=== PATIENT | male | born 1940 | race Caucasian/White ===

== ENCOUNTER 2017-04-02 16:33 | Inpatient (IN) ==
[2017-04-02 17:21] LABS: Basophils % 0.2 % (0.0-0.8); Eosinophils # 0.2 10*3/uL (0.0-0.87); Hematocrit 36.1 VOL% (42.0-52.0); Hemoglobin 13.1 GM/DL (14.0-18.0); Immature Granulocytes % 0.7 %; Immature Granulocytes Absolute 0.06 #; Lymphocytes # 1.9 10*3/uL (1.4-4.0); Lymphocytes % 21.3 % (21.2-54.2); Mean Corpuscular HGB Conc 36.3 GM/DL (32-36); Mean Corpuscular Hemoglobin 33 PG (27-34); Mean Corpuscular Volume 89.8 FL (87-102); Mean Platelet Volume 10.5 FL (9.6-12.0); Monocytes % 11.2 % (1.7-12.7); Neutrophils # 5.6 10*3/uL (1.4-7.4); Neutrophils % 64.6 % (38.7-73.9); Platelet Count 177 T/CUMM (130-400); Red Blood Count 4.02 MC/CUMM (3.8-5.5); Red Cell Distribution Width 12.3 % (9.3-17.3); White Blood Count 8.7 T/CUMM (4-12)
[2017-04-02 17:32] LABS: INR 1.1; PT Patient Result 11.3 SECS; Partial Thromboplastin Time 26.5 SECS (0-40)
[2017-04-02 17:52] LABS: Calcium 8.2 MG/DL (8.5-10.1); Osmolality,Calculated 250.4 MOS/KG (273-304); Potassium 3.8 MMOL/L (3.5-5.1)
[2017-04-02] MEDS ORDERED: ACETAMINOPHEN 325 MG TABLET PO PRN (19:17)
[2017-04-02] MEDS ORDERED: LORazepam 1 MG TABLET PO PRN (19:17)
[2017-04-02] MEDS ORDERED: NICOTINE 21 MG/24 HR PATCH TRANSDERM PRN (19:24)
[2017-04-02] MEDS: SODIUM CHLORIDE 0.9% 1,000 ML IV SCH (20:32)
[2017-04-03 05:32] LABS: Albumin 3.2 G/DL (3.4-5.0); Bilirubin,Total 0.9 MG/DL (0.2-1.0); Calcium 8.1 MG/DL (8.5-10.1); Osmolality,Calculated 251.4 MOS/KG (273-304); Potassium 3.9 MMOL/L (3.5-5.1); Total Protein 5.4 G/DL (6.4-8.3)
[2017-04-03 05:43] LABS: Folate 11.7 NG/ML (5.4-24.0)
[2017-04-03 08:32] LABS: Thyroid Stimulating Hormone 1.04 uIU/ml (0.358-3.74)
[2017-04-03] MEDS: MULTIVITAMIN (CENTRUM) TABLET PO SCH (09:24)
[2017-04-03] MEDS: THIAMINE 100 MG TABLET PO SCH (09:24)
[2017-04-03] MEDS: FOLIC ACID 1 MG TABLET PO SCH (09:25)
[2017-04-03] MEDS: PANTOPRAZOLE 40 MG TABLET PO SCH (09:25)
[2017-04-03] MEDS: SODIUM CHLORIDE 0.9% 1,000 ML IV SCH ×2 (09:27→09:47)
[2017-04-03 11:01] LABS: Apearance,Urine CLEAR (Clear); Bilirubin,Urine Negative (Negative); Blood, Urine Small mg/dL (Negative); Glucose,Urine (UA) Negative (Negative); Hyaline Casts,Urine 2 /LPF (0-3); Ketones,Urine 5 mg/dL (Negative); Mucus,Urine Occasional /LPF (Occasional); Nitrite,Urine Negative (Negative); Protein,Urine Negative; RBC,Urine <1 /HPF (0-4); Urine Color Yellow (Yellow); Urine Urobilinogen < 2.0 EU/DL (0.2-1.0); WBC,Urine 1 /HPF (0-6)
[2017-04-04 04:57] LABS: Basophils % 0.2 % (0.0-0.8); Eosinophils % 0.2 % (0.00-10.9); Hematocrit 26.1 VOL% (42.0-52.0); Hemoglobin 9.4 GM/DL (14.0-18.0); Immature Granulocytes % 0.4 %; Immature Granulocytes Absolute 0.03 #; Lymphocytes % 11.7 % (21.2-54.2); Mean Corpuscular Hemoglobin 32 PG (27-34); Mean Platelet Volume 11.5 FL (9.6-12.0); Monocytes # 1.2 10*3/uL (0.11-0.8); Monocytes % 13.9 % (1.7-12.7); Neutrophils # 6.1 10*3/uL (1.4-7.4); Neutrophils % 73.6 % (38.7-73.9); Platelet Count 173 T/CUMM (130-400); Red Cell Distribution Width 12.5 % (9.3-17.3); White Blood Count 8.3 T/CUMM (4-12)
[2017-04-04 05:29] LABS: Calcium 8.5 MG/DL (8.5-10.1); Magnesium 2.2 MG/DL (1.8-2.4); Potassium 4.1 MMOL/L (3.5-5.1)
[2017-04-04] MEDS: SODIUM CHLORIDE 0.9% 1,000 ML IV SCH ×2 (06:34→11:46)
[2017-04-04] MEDS: FOLIC ACID 1 MG TABLET PO SCH (09:44)
[2017-04-04] MEDS: THIAMINE 100 MG TABLET PO SCH (09:44)
[2017-04-04] MEDS: MULTIVITAMIN (CENTRUM) TABLET PO SCH (09:45)
[2017-04-04] MEDS: PANTOPRAZOLE 40 MG TABLET PO SCH (09:45)
[2017-04-04 12:11] VITALS: BP 130/61
== END 2017-04-04 15:55 | disposition home or self-care (01) | DRG 897 ==
LOC: N.ED 16:33 → N.EDINP 19:17 → N.4E 20:20
PROVIDERS: ADMIT Internal Medicine; ATTEND Internal Medicine